=== PATIENT | female | born 1985 | race Caucasian/White ===

== ENCOUNTER 2024-08-16 08:41 | Outpatient (CLI) | payer MEDICARE, MEDICAID, SELFPAY ==
[2024-08-16 12:33] LABS: TSH (W/Ref FT4) 0.94 uIU/mL (0.36-3.74)
== END 2024-08-16 08:42 | disposition home or self-care (01) ==
LOC: LOS 08:41
PROVIDERS: PCP Family Medicine; Visit Provider Family Medicine
DX: E03.9 Hypothyroidism, unspecified (principal); F41.9 Anxiety disorder, unspecified; E06.3 Autoimmune thyroiditis; F17.290 Nicotine dependence, other tobacco product, uncomplicated; E22.1 Hyperprolactinemia; D35.2 Benign neoplasm of pituitary gland; I10 Essential (primary) hypertension
CPT/HCPCS: 36415; 84443

== ENCOUNTER 2024-11-15 00:09 | Outpatient (CLI) | payer MEDICARE, MEDICAID, SELFPAY ==
--- NOTE | 2024-11-15 07:00 | DI.MAMMO_ITS ---
Exam(s) MAMMO DIAGNOSTIC BI EXAM: MAMMO DIAGNOSTIC BI CLINICAL HISTORY: right breast nipple changes,r23.4 TECHNIQUE: Mammograms were interpreted according to the usual protocol including computer analysis w [employer] CAD system, tomosynthesis and C-view imaging. COMPARISON: No exams were available for comparison. Baseline examination. FINDINGS: The breasts are composed of scattered fibroglandular densities, Breast Density category B. No suspicious masses or suspicious microcalcifications are seen. No skin thickening or abnormal axillary lymph nodes are seen. IMPRESSION: BI-RADS Category 1, Negative mammogram Yearly screening mammography is recommended. Breast Density - Category B, scattered fibroglandular densities. A negative radiographic report should not delay biopsy if a dominant or clinically suspicious mass is present. Up to ten percent of cancers are not identified on mammography. A negative report may reinforce clinical impression. Adenosis and dense breasts may obscure an underlying neoplasm. False positive reports average 6 to 10%. Patient will receive a letter notifying them of these results.
== END 2024-11-15 00:29 ==
LOC: DI 00:09
PROVIDERS: PCP Family Medicine; Visit Provider Family Medicine
DX: R23.4 Changes in skin texture (principal); Z12.31 Encounter for screening mammogram for malignant neoplasm of breast; R92.323 Mammographic fibroglandular density, bilateral breasts
CPT/HCPCS: 77062; 77066; G0279

== ENCOUNTER 2024-12-04 21:35 | Outpatient (REF) | payer MEDICARE, MEDICAID, SELFPAY ==
[2024-12-04 21:39] LABS: Anion Gap 9.4 mmol/L (3-11); BUN 16 mg/dL (7-18); CO2 28.6 mmol/L (21.0-32.0); CREATININE 0.7 mg/dL (0.55-1.02); Calcium 9.4 mg/dL (8.5-10.1); Chloride 103 mmol/L (98-107); Estimated GFR 112.05 (mL/min/1.73m2); Glucose 77 mg/dL (74-106); Potassium 3.7 mmol/L (3.5-5.1); Sodium 141 mmol/L (136-145)
== END 2024-12-04 21:36 | disposition home or self-care (01) ==
LOC: LBN 21:35
PROVIDERS: PCP Family Medicine; Visit Provider Family Medicine
DX: I10 Essential (primary) hypertension (principal); Z00.00 Encounter for general adult medical examination without abnormal findings; D35.2 Benign neoplasm of pituitary gland; E22.1 Hyperprolactinemia; F10.90 Alcohol use, unspecified, uncomplicated; F17.290 Nicotine dependence, other tobacco product, uncomplicated
CPT/HCPCS: 80048

== ENCOUNTER 2025-02-07 01:46 | Outpatient (CLI) | payer MEDICARE, MEDICAID, SELFPAY ==
[2025-02-07 17:09] LABS: FREE T4 1.27 ng/dL (0.76-1.46); TSH 0.64 uIU/mL (0.36-3.74)
== END 2025-02-07 01:47 | disposition home or self-care (01) ==
LOC: LBO 01:46
PROVIDERS: PCP Family Medicine; Visit Provider Internal Medicine Endocrinology, Diabetes & Metabolism
DX: E03.9 Hypothyroidism, unspecified (principal)
CPT/HCPCS: 84146; 84439; 84443

== ENCOUNTER 2025-03-21 18:13 | Outpatient (REF) | payer MEDICARE, MEDICAID, SELFPAY ==
--- NOTE | 2025-03-21 16:40 | PAPFT_PTH ---
PATIENT: Monet Brennan LOC: [facility] U#:[id number] AGE/SX: 40/F ROOM: RE03/21/[address]: Stephanie Larose : 1985 BED: DIS: 03/21/2025 SPEC #: [id number] RECD: 03/24/25 13:16 STATUS: GREGORIO REQ #: [id number] HAILEE: 03/21/25 16:[address]: Stephanie Larose DEPT: [facility] Cytology RECD BY: Sharon Mcnulty Tissues: 1 - CX/ENDOCX FOR PAP SMEARS Procedures: PAP THIN PREP/[facility] Screening HPV DNA PROBE Comments: [id number] (HPV 16 & 18/45)
== END 2025-03-21 18:14 | disposition home or self-care (01) ==
LOC: LBN 18:13
PROVIDERS: PCP Family Medicine; Visit Provider Family Medicine
DX: Z12.4 Encounter for screening for malignant neoplasm of cervix (principal)
CPT/HCPCS: 88142; 87624

== ENCOUNTER 2025-04-01 09:14 | Observation (INO) | payer MEDICARE, MEDICAID, SELFPAY ==
[2025-04-01] VITALS (56 sets, daily range): BP systolic 96–144; BP diastolic 63–92; PULSE 59–95; RESP 11–22; TEMP 36.5–36.7; O2SAT 96–100
--- NOTE | 2025-04-01 09:30 | RT.EKG_ITS ---
APPROVED REPORT Exam: Resting ECG Reason for Exam: dizziness Patient Location: E HR:77 bpm ECG Measurements Heart Rate 77 AXIS HI 161 P 77 QRSd 101 QRS 73 QT 399 T 56 QTc 452 Conclusion Sinus rhythm...normal P axis, V-rate 60- 99 Sinus Rhythm. No prior. WD
--- NOTE | 2025-04-01 09:30 | DI.RAD_ITS ---
Exam(s) XR CHEST 2V PA LATERAL EXAM: XR CHEST 2V PA LATERAL CLINICAL HISTORY: dizziness TECHNIQUE: 2D digital imaging was performed of the chest. Two images were obtained. PA and lateral views were obtained. COMPARISON: No exams were available for comparison FINDINGS: MEDIASTINUM: Normal. HEART: Normal. PULMONARY VASCULATURE: Normal. LUNGS: There is a small area of atelectasis seen in the right middle lobe. The lungs are otherwise clear. PLEURAL SPACE: No pleural effusion or pneumothorax. BONE:Within normal limits for the patient's age. OTHER FINDINGS:Normal. IMPRESSION: No acute pulmonary findings. DATA REPOSITORY: RADIATION DOSE DELIVERED:
[2025-04-01 10:04] LABS: Glucose Negative (Negative)
[2025-04-01 10:33] LABS: Abs Immature Grans 0.02 10^3/uL (0.0-0.06); HCT 39.5 % (36.0-46.0); HGB 13.4 g/dL (11.2-15.7); Immature Grans % 0.2 %; MCH 30.2 pg (27.0-33.0); MCHC 33.9 % (32.0-36.0); MCV 89 fL (80-95); MPV 10.2 fL (8.0-11.0); Platelet Count 294 10^3/uL (130-400); RBC 4.44 10^6/uL (3.93-5.22); RDW 12.0 % (11.7-14.6); RDW-SD 39.3 fL; WBC 8.33 10^3/uL (4.4-10.8)
[2025-04-01 10:37] LABS: ESR 9 mm/hr (0-20)
[2025-04-01] MEDS: Omnipaque 350 MG/ML 100 ML BTL IJ (10:47)
[2025-04-01] MEDS: Normal Saline - Diluent 50 ML VIAL IJ (10:49)
--- NOTE | 2025-04-01 10:55 | DI.CT_ITS ---
Exam(s) CT BRAIN NECK CTA EXAM: CT BRAIN NECK CTA CLINICAL HISTORY: vertigo x4days. TECHNIQUE: Imaging Protocol: Axial CT angiography was performed with multi- slice acquisition and multi-planar and/or 3D reconstructions. CONTRAST MATERIAL: Intravenous: Omnipaque 350 contrast volume:70 mL COMPARISON: No exams were available for comparison FINDINGS: CT Head W/O and W: Ventricles and Extra axial spaces: Normal in size and morphology for the patient's age. Hemorrhage: None. Cerebral parenchyma: There is no evidence of an acute territorial infarct or mass effect. Midline shift: None. Brainstem/Cerebellum: Normal. Calvarium: Normal. Visualized Paranasal sinuses/Mastoids: There is mild mucosal thickening in the paranasal sinuses. No air-fluid levels are seen. The mastoid air cells are clear. Soft Tissues: Unremarkable. Enhancement: Unremarkable. CTA Neck W: Common Carotid: Right: No dissection, occlusion or significant stenosis. Left: No dissection, occlusion or significant stenosis. External Carotid: Right: No occlusion or significant stenosis. Left: No occlusion or significant stenosis. Internal Carotid: Right: No dissection, occlusion or significant stenosis. Left: No dissection, occlusion or significant stenosis. Vertebral Artery: Right: No dissection, occlusion or significant stenosis. Left: No dissection, occlusion or significant stenosis. Lung Apices: Normal. Bones: Within normal limits for the patient's age. Soft Tissues: Normal. Thyroid gland: Unremarkable. CTA Brain W: Internal Carotid Arteries: There is no evidence of an aneurysm, occlusion or significant stenosis. Anterior Cerebral Arteries: Right: No aneurysm, occlusion or significant stenosis. Left: No aneurysm, occlusion or significant stenosis. Middle Cerebral Arteries: Right: No aneurysm, occlusion or significant stenosis. Left: No aneurysm, occlusion or significant stenosis. Posterior Cerebral Arteries: Right: No aneurysm, occlusion or significant stenosis. Left: No aneurysm, occlusion or significant stenosis. Vertebral Arteries: Right: No aneurysm, occlusion or significant stenosis. Left: No aneurysm, occlusion or significant stenosis. Basilar Artery: No aneurysm, occlusion or significant stenosis. Incidental note is made of a venous angioma in the left frontal lobe. IMPRESSION: 1. No large vessel occlusion or significant stenosis on the CT angiography of the head. 2. No acute intracranial process. 3. No occlusion or significant stenosis on the CT angiography of the neck. RADIATION DOSE DELIVERED: 2,176.33mGy.cm Total DLP DATA REPOSITORY: All CT scans at this facility are submitted to the National Radiology Data Registry (NRDR) Dose Index Registry (DIR) with the [employer] ([employer]). RADIATION OPTIMIZATION: All CT scans at this facility use at least one of these dose optimization techniques: automated exposure control; mA and/or kV adjustment per patient size (includes targeted exams where dose is matched to clinical indication); or iterative reconstruction.
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
[2025-04-01 11:46] LABS: ALT 16 U/L (14-59); AST 12 U/L (15-37); Albumin 3.5 g/dL (3.4-5.0); Alkaline Phosphatase 40 U/L (46-116); Anion Gap 4.6 mmol/L (3-11); BUN 11 mg/dL (7-18); Bilirubin, Total 0.4 mg/dL (0.2-1.0); CO2 27.4 mmol/L (21.0-32.0); Calcium 8.4 mg/dL (8.5-10.1); Chloride 105 mmol/L (98-107); Estimated GFR 120.77 (mL/min/1.73m2); Glucose 94 mg/dL (74-106); Magnesium 1.9 mg/dL (1.8-2.4); Potassium 3.8 mmol/L (3.5-5.1); Sodium 137 mmol/L (136-145); TSH (W/Ref FT4) 0.30 uIU/mL (0.36-3.74); Total Protein 6.6 g/dL (6.4-8.2); Troponin I 5 ng/L (<or=51)
[2025-04-01 11:47] LABS: C-Reactive Protein < 0.50 mg/dL (<or=0.5)
[2025-04-01] MEDS: Meclizine 25 MG TAB PO (11:58)
--- NOTE | 2025-04-01 15:06 | IN_ITS ---
PT Notes Visit Reasons: Dizziness Physical Therapy Inpatient Initial Evaluation Date: 04/01/2025 Referring Doctor: INGE Hughes PT Orders: PT CONSULT: ?BPPV. SAfety Consult for D/C Precautions: Activity as tolerated. Standard. Fall risk. Patient Profile/Admitting Diagnosis: Consult request was sent to assess for BPPV for this 40-year-old patient with history significant for heavy alcohol and nicotine dependence. She presented today with chief complaints of gait abnormality, vertigo, and feeling drunk. PMHX: All Active Problems (Updated 12/04/24 @ 16:10 by Stephanie Larose MD) Hypertension (Chronic ~2022) Elevated LFTs (Acute ~11/2023) negative elastography 01/2024; abd us with diffuse increased echogenicity Heavy alcohol use (Acute) Nicotine dependence (Chronic) vapes Anxiety (Chronic) manages with alcohol at bedtime; in therapy at [facility]. Medications have not been effective. 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 Indepednent with all aspects of ADLs prior to admission. Equipment Owned/DME: None Subjective: Patient stated that she has stopped drinking for two months now. She has had pressure in her head and her B ears which becomes worse when lying flat. She has not been this much dizzy. Onset: 03/29/2025 upon rising from her bed Quality: objects in room moving, jumpy Duration: On and off since two days ago, worst today Previous Episodes: Months ago but not to this extent Exacerbating Factors: sitting up from lying down Headache: Yes Neck ache: Yes Nausea/Vomitting: Nausea yes, vomiting no Hearing Loss: None Tinnitus: Yes Fullness in Ear: Yes Imbalance: Mildldy affected Red Flags: Visual changes: reported floaters on the L eye Dysphagia or Dysarthria: None Facial Weakness: None Incoordination: None Prior Level of Function: Independent with all ADLs. Current Level of Function: Mildly cautious with movement Previous Treatment: None OBJECTIVE: Posture: Good upright posturing Observation: guarded movements, with limited head motions during gait, transfers and bed mobility Mental Status: A and O x 4 Vital Signs: Closely monitored by nursing staff ROM: Cervical ROM: WFL Strength: Cervical muscle strength: 4/5 Bed Mobility/Transfers: Supine to sit stand by assist Sit to supine stand by assist Sit to stand stand by assist Stand to sit stand by assist Gait: 150 feet without an assistive device around ED hallway with cautious hesitant steps. Head and trunk rotation decreased. Gait speed decreased. Mild path deviation. Special Tests: [place]: Minimal side to side sway but no LOB Coordination: Intact Fine Motor: Intact Visual Tracking: Intact Head Impulse Test: Negative Test of Skew: Negative Nystagmus: None seen [address]: Left upbeating/torsional nystagmus of ?2 minuteswith R Rosemarie hallpike with increased spinning sensation reported but no vomitting Supine Roll Test: Negative Balance: Static Sitting: Good Dynamic Sitting: Good Static Standing: Fair Dynamic Standing: Fair Special Tests: Mobility Limitations Standardized Measure [facility] AM-PAC 6 clicks Basic Mobility Inpatient Short Form: Raw Score: 19 CMS Score: 42% deficit Informed Consent/Education: Patient instructed in purpose of PT consult and plan of care. Agreeable to proceed with established PT POC to achieve personal goals. NEURO RE-ED: -Gaze stabilization exercises with good response ASSESSMENT: R/L Rosemarie-Hallpike did not show any nystagmus when patient was tested for 2 minutes each side. Supine head roll test was also negative. Patient reported dizziness worst with sitting up from supine with both L and R [address] maneuver. Tinnitus present in B ears. Pressure in her head and both ears was worse with lying flat, patient indicated that this has been going on for the past 2-3 years now which is why she never lies down flat when sleeping. CT scan of the brain found an incidental venous angioma on the L prefrontal lobe which INGE Gray was aware about. Cervicalgia contributory to symptoms. Patient with headache and neck ache that she said have been going on for quite awhile now but not to this extent. Will plan on retesting patient in the next session if patient will be admitted for observation status. Patient presents with clinical signs and symptoms consistent with current/admitting diagnoses that have resulted to mobility limitations, gait instability, generalized weakness, and overall ADL decline as demonstrated by the following impairment level findings: 1. Impaired standing balance 2. Impaired activity tolerance 3. Headache 4. Neck ache 5. Subjective report of chroninc pressure in head 6. Subjective report of chroninc pressure in B ears Impairments are contributing to the following functional limitations: 1. Increased completion time for mobility ADL performance 2. Increased risk for falls 3. Impaired balance with gait instability Patient is assessed as a 61777 low complexity based on the following: History: 40-year-old male with past medical history as indicated above Examination: Demonstrable impairment above Presentation: Evolving Decision Makin low complexity Goals: 1 week 1. Patient will be independent with level surface ambulation without an assistive device for up to 1000 feet to return to prior mobility level. 2. Patient will regain normal static and dynamic standing balance to facilitate return to safe mobility performance without AD. 3. Patient will show mastery of gaze stabilization performance utilizing a written copy to be done at home. Plan of Care/Treatment Plan: 1-2x/wk for for 1 week for vestibular rehab and functional mobility training. DISCHARGE RECOMMENDATIONS: OP PT for vestibular rehab once cleared by teleneurology/hospitalist. TREATMENT CODE/TIME: 94559 x 20 minutes for 1 unit, 28436 x 27 minutes for 2 units (14:14-15:03). Thank you for the opportunity to participate in the care of this patient. Allyn Hook PT, DPT, CLT [facility] [place], [place]
--- NOTE | 2025-04-01 16:40 | W.EDPROG ---
Date of service: 04/01/25 Time of Service: 16:40 Medical Decision Making Care assumed from provider (INGE Mark) Please see their initial HPI, PE, and documentation. Discussed patient details and case and pending workup and disposition. Patient is hemodynamically stable, and alert and oriented. On my initial examination patient is awake alert and conversive, family is at bedside she is requesting to take her noon medications which include amlodipine Zyrtec and vitamin D which I okayed. I did let the staff research scientist know. Patient did have consult with teleneuro who recommended an MRI which we are unable to get today. 1641: Consulted with Dr. Suazo who is on for hospitalist regarding admission request for observation, further treatment and MRI in morning for intractable dizziness low TSH with history of Rajiv's thyroiditis and pending MRI in morning. 1707: Spoke with Dr. Mendez who is on-call for hospitalist, discussed patient case in details he agrees to accept patient for admission for observation MRI in the morning. Discussed plan of care with patient and family who verbalized understanding and are in agreement with the plan. This text was generated using [employer] system, please disregard any oddities of phrase or misspellings. Medical Records Medical records reviewed: Yes I reviewed the patient's medical records. Imaging Data Radiologic Study: Imaging: CT Scan Radiologist's impression: Exam(s) a CT:CT brain & neck CTA Exam(s) CT BRAIN NECK CTA EXAM: CT BRAIN NECK CTA CLINICAL HISTORY: vertigo x4days. TECHNIQUE: Imaging Protocol: Axial CT angiography was performed with multi-slice acquisition and multi-planar and/or 3D reconstructions. CONTRAST MATERIAL: Intravenous: Omnipaque 350 contrast volume:70 mL COMPARISON: No exams were available for comparison FINDINGS: CT Head W/O and W: Ventricles and Extra axial spaces: Normal in size and morphology for the patient's age. Hemorrhage: None. Cerebral parenchyma: There is no evidence of an acute territorial infarct or mass effect. Midline shift: None. Brainstem/Cerebellum: Normal. Calvarium: Normal. Visualized Paranasal sinuses/Mastoids: There is mild mucosal thickening in the paranasal sinuses. No air-fluid levels are seen. The mastoid air cells are clear. Soft Tissues: Unremarkable. Enhancement: Unremarkable. CTA Neck W: Common Carotid: Right: No dissection, occlusion or significant stenosis. Left: No dissection, occlusion or significant stenosis. External Carotid: Right: No occlusion or significant stenosis. Left: No occlusion or significant stenosis. Internal Carotid: Right: No dissection, occlusion or significant stenosis. Left: No dissection, occlusion or significant stenosis. Vertebral Artery: Right: No dissection, occlusion or significant stenosis. Left: No dissection, occlusion or significant stenosis. Lung Apices: Normal. Bones: Within normal limits for the patient's age. Soft Tissues: Normal. Thyroid gland: Unremarkable. CTA Brain W: Internal Carotid Arteries: There is no evidence of an aneurysm, occlusion or significant stenosis. Anterior Cerebral Arteries: Right: No aneurysm, occlusion or significant stenosis. Left: No aneurysm, occlusion or significant stenosis. Middle Cerebral Arteries: Right: No aneurysm, occlusion or significant stenosis. Left: No aneurysm, occlusion or significant stenosis. Posterior Cerebral Arteries: Right: No aneurysm, occlusion or significant stenosis. Left: No aneurysm, occlusion or significant stenosis. Vertebral Arteries: Right: No aneurysm, occlusion or significant stenosis. Left: No aneurysm, occlusion or significant stenosis. Basilar Artery: No aneurysm, occlusion or significant stenosis. Incidental note is made of a venous angioma in the left frontal lobe. IMPRESSION: 1. No large vessel occlusion or significant stenosis on the CT angiography of the head. 2. No acute intracranial process. 3. No occlusion or significant stenosis on the CT angiography of the neck. Lab Data Lab results reviewed: Yes I reviewed the patient's lab results. Labs: Laboratory Tests Range/Units 04/01/25 04/01/25 04/01/25 09:30 10:20 11:10 WBC (4.4-10.8) 10^3/uL 8.33 RBC (3.93-5.22) 10^6/uL 4.44 Hgb (11.2-15.7) g/dL 13.4 Hct (36.0-46.0) % 39.5 MCV (80-95) fL 89 MCH (27.0-33.0) pg 30.2 MCHC (32.0-36.0) % 33.9 RDW (11.7-14.6) % 12.0 Plt Count (130-400) 10^3/uL 294 MPV (8.0-11.0) fL 10.2 Immature Gran % % 0.2 Neutrophils % % 75.2 Lymphocytes % % 18.4 Monocytes % % 4.7 Eosinophils % % 0.7 Basophils % % 0.8 Nucleated RBC % (0.0-0.3) % 0.0 Absolute Neutrophils (1.2-6.7) 10^3/uL 6.26 Absolute Lymphocytes (1.2-3.4) 10^3/uL 1.53 Absolute Monocytes (0.1-0.8) 10^3/uL 0.39 Absolute Eosinophils (0.0-0.7) 10^3/uL 0.06 Absolute Basophils (0.0-0.2) 10^3/uL 0.07 ESR (0-20) mm/hr 9 Sodium Cancelled 137 Potassium Cancelled 3.8 Chloride Cancelled 105 Carbon Dioxide Cancelled 27.4 Anion Gap Cancelled 4.6 BUN Cancelled 11 Creatinine Cancelled 0.5 L Est GFR (CKD-EPI 2020) Cancelled 120.77 Glucose Cancelled 94 Calcium Cancelled 8.4 L Magnesium Cancelled 1.9 Total Bilirubin Cancelled 0.4 AST Cancelled 12 L ALT Cancelled 16 Alkaline Phosphatase Cancelled 40 L Troponin I Cancelled 5 C-Reactive Protein Cancelled < 0.50 Total Protein Cancelled 6.6 Albumin Cancelled 3.5 TSH Cancelled 0.30 L Free T4 (0.76-1.46) ng/dL 1.54 H Urine Color (Yellow) Yellow Urine Clarity (Clear) Clear Urine pH (5-8) 5.5 Ur Specific Crowley (1.005-1.025) 1.020 Urine Protein (Neg-Trace) mg/dL Negative Urine Ketones (Negative) mg/dL Trace H Urine Blood (Negative) Negative Urine Nitrite (Negative) Negative Urine Bilirubin (Negative) Negative Urine Urobilinogen (Up to 0.2) mg/dL 0.2 Ur Leukocyte Esterase (Negative) Negative Urine Glucose (Negative) mg/dL Negative Discharge Plan Disposition Patient Disposition: Admit to [facility] Condition: Stable Discharge Details Clinical Impression: Dizziness and giddiness Primary Care Provider: Stephanie Larose ED Provider: Angela Roman Home Meds and New Rx's Prescriptions: No Action cabergoline 0.5 mg tablet 0.5 mg PO Q7D Zyrtec 10 mg capsule 10 mg PO DAILY cholecalciferol (vitamin D3) 125 mcg (5,000 unit) capsule 2,000 unit PO DAILY fluticasone furoate-vilanterol [Breo Ellipta] 100-25 mcg/dose blister with device 1 inh inhalation DAILY Qty: 60 3RF azelastine 137 mcg (0.1 %) spray,non-aerosol 2 spray intranasal BID PRN (Reason: nasal congestion) Qty: 30 0RF Rx Instructions: administer into each nostril amlodipine 10 mg tablet 10 mg PO DAILY Qty: 90 3RF albuterol sulfate 90 mcg/actuation aerosol powdr breath activated 2 inh inhalation Q4H PRN (Reason: shortness of breath or wheezing) Qty: 1 5RF levothyroxine 137 mcg tablet 137 mcg PO DAILY Qty: 90 3RF triamcinolone acetonide 0.1 % lotion 1 applic topical BID Qty: 60 3RF albuterol sulfate 2.5 mg /3 mL (0.083 %) solution for nebulization 2.5 mg inhalation Q6H PRN (Reason: shortness of breath or wheezing) Qty: 90 11RF
--- NOTE | 2025-04-01 16:42 | NUR.NOTE ---
Patient was given person by oncoming Provider to take her home evening meds: amlodipine, zyrtec and vitamin D
[2025-04-01 16:48] LABS: Cannabinoids THC Positive (Negative); METHADONE URINE SCREEN Negative (Negative)
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
--- NOTE | 2025-04-01 20:17 | W.PC.ACHO ---
Registration Status: ADM STEPHEN Primary Language: Preferred Language: ED Information & Data Chief Complaint Dizzy/Sync 04/01/25 11:39 Triage Note Dizzy x3 days, feels 04/01/25 09:19 pressure in head and bilat ears, feels drunk. Was seen x1 mth ago for floaters in eye this continues, also states she feels she is talking slow Medical / Surgical History (Last Reviewed 04/01/25 @ 18:44 by [place] For[place]) Sinus tachycardia Left bundle branch block Hx of Rajiv thyroiditis (Last Reviewed 04/01/25 @ 18:44 by French Forde) H/O foot surgery (~2012) S/P left oophorectomy (2014) S/P tubal ligation (2014) Most Recent Vital Signs Temperature 36.6 C 04/01/25 18:57 Temperature Source Temporal Artery Scan 04/01/25 18:53 Pulse 77 04/01/25 18:57 Pulse 80 04/01/25 18:36 Respiratory Rate 12 04/01/25 18:57 Respiratory Effort Normal, Non-Labored 04/01/25 10:23 Respiratory Depth Normal 04/01/25 10:23 Respiratory Pattern Normal 04/01/25 10:23 Blood Pressure 114/87 04/01/25 18:57 Blood Pressure Mean 87 04/01/25 18:53 Blood Pressure Position Sitting 04/01/25 09:19 Pulse Oximetry 98 04/01/25 18:57 Oxygen Delivery Method Room Air 04/01/25 18:53 Oxygen Flow Rate 0 04/01/25 18:53 Pain Level 0 04/01/25 18:57 Allergies Latex, Natural Rubber Allergy (Intermediate, Verified 04/01/25 09:23) rash loratadine Adverse Reaction (Verified 04/01/25 09:23) Other (See Comment) Precautions Isolation Standard precaution 04/01/25 09:26 Active Medications Generic Name Dose Route Start Last Admin Trade Name Freq PRN Reason Stop Dose Admin Iohexol 100 ml 04/01/25 11:00 04/01/25 10:47 Omnipaque 350 Mg/Ml 100 Ml Btl IJ 05/01/25 23:59 70 ml DIRECTED MARCELLO Administration Sodium Chloride 50 ml 04/01/25 11:00 04/01/25 10:49 Normal Saline - Diluent 50 Ml Vial IJ 50 ml .FOR DI USE MARCELLO Administration IV IV Catheter Type [Right Saline Lock Antecubital] IV Catheter Gauge [Right 18 Antecubital] Diet Orders Category Date Time Status Regular/Normal [DIET] Nutrition 04/02/25 Breakfast Ordered Diagnostics 04/01/25 04/01/25 04/01/25 Range/Units 11:10 10:20 09:30 WBC 8.33 (4.4-10.8) 10^3/uL RBC 4.44 (3.93-5.22) 10^6/uL Hgb 13.4 (11.2-15.7) g/dL Hct 39.5 (36.0-46.0) % MCV 89 (80-95) fL MCH 30.2 (27.0-33.0) pg MCHC 33.9 (32.0-36.0) % RDW 12.0 (11.7-14.6) % Plt Count 294 (130-400) 10^3/uL MPV 10.2 (8.0-11.0) fL Immature Gran % 0.2 % Neutrophils % 75.2 % Lymphocytes % 18.4 % Monocytes % 4.7 % Eosinophils % 0.7 % Basophils % 0.8 % Nucleated RBC % 0.0 (0.0-0.3) % Absolute Neutrophils 6.26 (1.2-6.7) 10^3/uL Absolute Lymphocytes 1.53 (1.2-3.4) 10^3/uL Absolute Monocytes 0.39 (0.1-0.8) 10^3/uL Absolute Eosinophils 0.06 (0.0-0.7) 10^3/uL Absolute Basophils 0.07 (0.0-0.2) 10^3/uL ESR 9 (0-20) mm/hr Sodium 137 Cancelled Potassium 3.8 Cancelled Chloride 105 Cancelled Carbon Dioxide 27.4 Cancelled Anion Gap 4.6 Cancelled BUN 11 Cancelled Creatinine 0.5 L Cancelled Est GFR (CKD-EPI 2020) 120.77 Cancelled Glucose 94 Cancelled Calcium 8.4 L Cancelled Magnesium 1.9 Cancelled Total Bilirubin 0.4 Cancelled AST 12 L Cancelled ALT 16 Cancelled Alkaline Phosphatase 40 L Cancelled Troponin I 5 Cancelled C-Reactive Protein < 0.50 Cancelled Total Protein 6.6 Cancelled Albumin 3.5 Cancelled TSH 0.30 L Cancelled Free T4 1.54 H (0.76-1.46) ng/dL Urine Color Yellow (Yellow) Urine Clarity Clear (Clear) Urine pH 5.5 (5-8) Ur Specific [place] 1.020 (1.005-1.025) Urine Protein Negative (Neg-Trace) mg/dL Urine Ketones Trace H (Negative) mg/dL Urine Blood Negative (Negative) Urine Nitrite Negative (Negative) Urine Bilirubin Negative (Negative) Urine Urobilinogen 0.2 (Up to 0.2) mg/dL Ur Leukocyte Esterase Negative (Negative) Urine Glucose Negative (Negative) mg/dL Urine Opiates Screen Negative (Negative) Urine Methadone Screen Negative (Negative) Ur Barbiturates Screen Negative (Negative) Ur Tricyclics Screen Negative (Negative) Ur Amphetamines Screen Negative (Negative) U Benzodiazepines Scrn Negative (Negative) Urine Cocaine Screen Negative (Negative) Ur THC Screen Positive A (Negative) Ethyl Alcohol < 3.0 (<10) mg/dL [id number] Documentation POC Urine Test Start: 04/01/25 09:43 Freq: .Urine Test Status: Active Protocol: Activity Type Activity Date Activity User E-sign Co-sign Detail Recorded Client Recorded Date Recorded By Document 04/01/25 09:59 BANDAR [id number] 04/01/25 09:59 BANDAR Intake and Output - 24 Hour Total 04/01/25 09:14 thru 04/01/25 09:19 Weight 79.379 kg Falls Risk Assessment History of Falls No History 04/01/25 09:27 Contributing Factors Unstable 04/01/25 09:27 Ambulatory Aids Independent 04/01/25 09:27 Tubes/Lines None 04/01/25 09:27 Gait Evaluation No gait disturbance 04/01/25 09:27 Cognition No cognitive impairment 04/01/25 09:27 Fall Total Score 3 04/01/25 09:27 Level of Risk Standard/Low Risk 04/01/25 09:27 Problems (Last Reviewed 04/01/25 @ 18:44 by [place]) DVT prophylaxis (Acute) Dizziness and giddiness (Acute) Hypertension (Chronic ~2022) Nicotine dependence (Chronic) Asthma (Chronic) Hypothyroidism (Chronic) 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 Information / Comments: Paged at [phone], report called for at [phone] and spoke w/ Cassi who stated they would call back, @ [phone] Arabella called back and report was received. Increased dizziness, vertigo, and unsteady gait. Report received from: Arabella, ED Nurse
[2025-04-02 03:24] VITALS: BP 92/65; PULSE 67; RESP 18; TEMP 36.7; O2SAT 97
[2025-04-02 06:00] VITALS: PULSE 70
[2025-04-02 07:01] LABS: Hemoglobin A1C 5.1 % (<5.7)
[2025-04-02 07:12] LABS: Calculated LDL 68 mg/dL (<100); Cholesterol 123 mg/dL (<200); HDL Cholesterol 45 mg/dL (>or=50); Triglyceride 52 mg/dL (<150)
[2025-04-02 07:26] VITALS: BP 112/68; PULSE 67; RESP 14; TEMP 36; O2SAT 98
--- NOTE | 2025-04-02 09:10 | DI.MRI_ITS ---
Exam(s) MR BRAIN WO EXAM: MR BRAIN WO CLINICAL HISTORY: ?posterior circulation, speech, vertigo TECHNIQUE: Multiplanar multisequence MRI of the brain was performed. COMPARISON: CT CT BRAIN NECK CTA from 04/01/2025 FINDINGS: The examination is limited due to patient motion artifact. VENTRICLES AND EXTRA AXIAL SPACES: Normal in size and morphology for the patient's age. MIDLINE SHIFT: None. CEREBRAL PARENCHYMA: No focus of restricted diffusion to suggest acute infarct. No space-occupying lesion identified. HEMORRHAGE: None. BRAINSTEM/CEREBELLUM: Normal. CALVARIUM: Normal. VISUALIZED PARANASAL SINUSES/MASTOIDS:Clear. [place]: Normal flow void. [place]: Unremarkable. OTHER FINDINGS: None. IMPRESSION: No acute intracranial process. No evidence of an acute infarct. DATA REPOSITORY:
[2025-04-02] MEDS: Budesonide/Formoterol 80/4.5 10.2 GM 120 PUFF INH IH (10:16)
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
--- NOTE | 2025-04-02 11:16 | PT.INTREAT ---
PT Notes Visit Reasons: Vertigo, slurred speech Physical Therapy Inpatient Treatment Note Date: 04/02/2025 Precautions: Activity as tolerated. Standard. Fall risk. Subjective: Dizziness and pressure in head not as intense as it was yesterday with movement. OBJECTIVE: Posture: Good upright posturing Observation: Continues to guarded movements, with limited head motions during gait, transfers and bed mobility Mental Status: A and O x 4 Vital Signs: Closely monitored by nursing staff Gait: 250 feet without an assistive device around ED hallway with cautious hesitant steps. Head and trunk rotation decreased. Gait speed decreased. Mild path deviation. stand by assist only. Special Tests: Rosemarie-Halpike: Negative for nystagmus but verbalized increased pressure in head and B ears with sitting up from supine Supine Roll Test: Negative NEURO RE-ED: -Facilitated improved motor control, coordination, and proprioception during level surface ambulation along med surg hallway focusing on reciprocal leg advancement with arm swing, as well as trunk rotation. Increased challenge in balance while walking forward looking side to side 15 steps forward x 6 and then looking up and down while close to the wall outside the PT room, gradually increasing speed of head movements to tolerance. Patient demonstrated minimal instability that did not result to LOB as she was able to check herself safely. -VOR 1 exercises in sitting Balance: Static Sitting: Good Dynamic Sitting: Good Static Standing: Fair Dynamic Standing: Fair ASSESSMENT: R/L Rosemarie-Hallpike did not show any nystagmus when patient was REtested for 2 minutes each side. Supine head roll test was again negative. Patient reported dizziness worst with sitting up from supine with both L and R Rosemarie-Hallpike maneuver. Overall symptoms now with less intensity as patient demonstrated more efficient mobility performance. Plan of Care/Treatment Plan: 1-2x/wk for for 1 week for vestibular rehab and functional mobility training. DISCHARGE RECOMMENDATIONS: OP PT for vestibular rehab once cleared by teleneurology/hospitalist. TREATMENT CODE/TIME: 21215 x 44 minutes for 3 units (11:16-12:00).
--- NOTE | 2025-04-02 11:32 | CHAPLAIN ---
Monet was resting in bed when I visited this morning. Her nurse had just left the room. I introduced myself and explained my role. Monet said she's doing okay, and when I asked if I could get her anything, she said she was good with her water and tv. I will continue to visit.
--- NOTE | 2025-04-02 13:59 | PDOC.CMDIS ---
Date of service: 04/01/25 Time of Service: 14:00 LACE Index Scoring Tool Questions: Length of Stay (in days): 1 Was the patient admitted via the E.D.?: Yes E.D. Visits: 0 Answers: Total Score: 4 Risk of Readmission: Low Risk Care Management Discharge Plan Reason for Hospitalization: Vertigo Discharge Plan: Monet is being discharged home via private vehicle with family. Pt will follow up with community providers and her discharge plan of care as directed. No new services were ordered prior to discharge; a return to work letter was provided on discharge. Patient/Family Education Needs: Review discharge instructions and plan to follow up after discharge. Discuss ask me three. SDOH Health Related Social Needs: Health related social needs risk of homeless
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
== END 2025-04-02 15:31 | disposition home or self-care (01) ==
LOC: ER 17:07 → MS 18:40
PROVIDERS: Physician Assistant; Admitting Provider Family Medicine; Emergency Provider Registered Nurse Emergency; PCP Family Medicine; Responsible Provider Family Medicine; Visit Provider Family Medicine
DX: R42 Dizziness and giddiness (principal); R47.81 Slurred speech; J45.909 Unspecified asthma, uncomplicated; E22.1 Hyperprolactinemia; E06.3 Autoimmune thyroiditis; I10 Essential (primary) hypertension; R11.2 Nausea with vomiting, unspecified; Z79.899 Other long term (current) drug therapy; F32.A Depression, unspecified; F43.10 Post-traumatic stress disorder, unspecified; F10.91 Alcohol use, unspecified, in remission; F17.290 Nicotine dependence, other tobacco product, uncomplicated; F41.9 Anxiety disorder, unspecified; L50.8 Other urticaria; G43.009 Migraine without aura, not intractable, without status migrainosus; L40.9 Psoriasis, unspecified; D35.2 Benign neoplasm of pituitary gland
CPT/HCPCS: 00123; 36415; 70496; 70498; 80053; 80061; 80307; 81025; 85652; 93005; 94640; 97112; 97161; 97530; 99285; 70551; 71046; 80320; 81003; 83036; 83735; 84439; 84443; 84484; 85025; 86140; 93010; 94664; 99222; 99239; G0378; J3490

== ENCOUNTER 2025-05-12 17:35 | Emergency (ER) | payer MEDICARE, MEDICAID, SELFPAY ==
[2025-05-12 17:38] VITALS: BP 154/101; PULSE 92; RESP 18; TEMP 36.9; O2SAT 98
[2025-05-12 17:41] VITALS: BP 154/101; PULSE 92; RESP 18; TEMP 36.9; O2SAT 98
--- NOTE | 2025-05-12 18:30 | DI.CT_ITS ---
Exam(s) CT ABDOMEN PELVIS W EXAM: CT ABDOMEN PELVIS W CLINICAL HISTORY: RLQ abd Pain TECHNIQUE: Imaging Protocol: Axial computed tomography images with coronal and sagittal reformatted images were created and reviewed. CONTRAST MATERIAL: Intravenous: Omnipaque 350 Contrast volume:75 mL Oral: No COMPARISON: No exams were available for comparison FINDINGS: ABDOMEN: Lung Bases: No acute abnormality. Liver: Normal density. No measurable mass. Portal, Superior Mesenteric, and Splenic Veins: Unremarkable. Gallbladder and Biliary Tract: No radiodense calculus or dilation. Pancreas: Normal density, no abnormal calcifications or inflammatory process. Spleen: Normal. Adrenals: No masses seen. Kidneys: Normal size, contour and axis. No radiodense stones or obstructive uropathy. No masses seen. Abdominal Aorta: Abdominal portion non-dilated. Bowel: There are few scattered diverticula, but no evidence of acute diverticulitis. There is no evidence of bowel wall thickening or bowel obstruction. Appendix is unremarkable. Peritoneal Cavity: No ascites, collection or mesenteric inflammatory response. No free air. Lymph Nodes: Within normal limits. Bones: Within normal limits for the patient's age. Soft Tissues: Unremarkable. PELVIS: Bladder: Symmetric distention, no gross wall thickening. Reproductive Organs: Unremarkable as visualized. Lymph Nodes: Within normal limits. Bones: Within normal limits for the patient's age. IMPRESSION: 1. No acute abdominal or pelvic process. 2. There is a normal appendix. 3. Colonic diverticulosis without evidence of acute diverticulitis. 4. The preliminary [facility] report was reviewed. RADIATION DOSE DELIVERED: 546.77mGy.cm Total DLP DATA REPOSITORY: All CT scans at this facility are submitted to the National Radiology Data Registry (NRDR) Dose Index Registry (DIR) with the [employer] (A[employer]). RADIATION OPTIMIZATION: All CT scans at this facility use at least one of these dose optimization techniques: automated exposure control; mA and/or kV adjustment per patient size (includes targeted exams where dose is matched to clinical indication); or iterative reconstruction.
[2025-05-12 18:42] LABS: Abs Immature Grans 0.02 10^3/uL (0.0-0.06); HCT 39.1 % (36.0-46.0); HGB 12.9 g/dL (11.2-15.7); Immature Grans % 0.2 %; MCH 29.2 pg (27.0-33.0); MCHC 33.0 % (32.0-36.0); MCV 89 fL (80-95); MPV 10.1 fL (8.0-11.0); Platelet Count 323 10^3/uL (130-400); RBC 4.42 10^6/uL (3.93-5.22); RDW 12.5 % (11.7-14.6); RDW-SD 40.4 fL; WBC 8.65 10^3/uL (4.4-10.8)
[2025-05-12 18:59] LABS: ALT 19 U/L (14-59); AST 13 U/L (15-37); Albumin 4.2 g/dL (3.4-5.0); Alkaline Phosphatase 51 U/L (46-116); Anion Gap 7.1 mmol/L (3-11); BUN 13 mg/dL (7-18); Bilirubin, Total 0.4 mg/dL (0.2-1.0); CO2 28.9 mmol/L (21.0-32.0); Calcium 9.0 mg/dL (8.5-10.1); Chloride 104 mmol/L (98-107); Estimated GFR 115.57 (mL/min/1.73m2); Glucose 85 mg/dL (74-106); Magnesium 1.9 mg/dL (1.8-2.4); Potassium 3.4 mmol/L (3.5-5.1); Sodium 140 mmol/L (136-145); Total Protein 7.5 g/dL (6.4-8.2)
[2025-05-12 19:04] LABS: Lipase 31 U/L (<78)
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
[2025-05-12] MEDS: Normal Saline Flush 10 ML SYR IVP (19:26)
[2025-05-12] MEDS: Omnipaque 350 MG/ML 100 ML BTL IJ (19:26)
[2025-05-12] MEDS: Normal Saline - Diluent 50 ML VIAL IJ (19:26)
--- NOTE | 2025-05-12 20:36 | DI.VRAD_ITS ---
PROCEDURE INFORMATION: Exam: CT Abdomen And Pelvis With Contrast Exam date and time: 05/12/2025 7:25 PM Age: 40 years old Clinical indication: Abdominal pain; Localized; Prior surgery; Surgery date: 6+ months; Surgery type: 1 ovary removed; Lower abd pain TECHNIQUE: Imaging protocol: Computed tomography of the abdomen and pelvis with contrast. Radiation optimization: All CT scans at this facility use at least one of these dose optimization techniques: automated exposure control; mA and/or kV adjustment per patient size (includes targeted exams where dose is matched to clinical indication); or iterative reconstruction. Contrast material: OMNIPAQUE 350; Contrast volume: 75 ml; Contrast route: INTRAVENOUS (IV); COMPARISON: CR XR CHEST 2V PA LATERAL 04/01/2025 10:44 AM FINDINGS: Liver: Normal. No mass. Gallbladder and biliary ducts: Normal. No calcified stones. No ductal dilation. Pancreas: Normal. No ductal dilation. Spleen: Normal. No splenomegaly. Adrenal glands: Normal. No mass. Kidneys and ureters: Normal. No hydronephrosis. Stomach and bowel: Unremarkable. No obstruction. No mucosal thickening. Appendix: No evidence of appendicitis. Intraperitoneal space: Unremarkable. No free air. No significant fluid collection. Vasculature: Unremarkable. No abdominal aortic aneurysm. Lymph nodes: Unremarkable. No enlarged lymph nodes. Urinary bladder: Unremarkable as visualized. Reproductive: Unremarkable as visualized. Bones/joints: Unremarkable. No acute fracture. Soft tissues: Unremarkable. IMPRESSION: No acute findings. Dictated and Authenticated by: Bunny Lynn MD. Orderin Jessie Miller MD
[2025-05-12 21:23] VITALS: BP 125/97; PULSE 69; RESP 18; TEMP 36.7; O2SAT 100
== END 2025-05-12 21:25 | disposition home or self-care (01) ==
PROVIDERS: Emergency Provider Registered Nurse Emergency; PCP Family Medicine
DX: R10.31 Right lower quadrant pain (principal); I10 Essential (primary) hypertension; E03.9 Hypothyroidism, unspecified; F17.290 Nicotine dependence, other tobacco product, uncomplicated
CPT/HCPCS: 80053; 81025; 83690; 99285; 74177; 83735; 85025; 99284; J3490

== ENCOUNTER 2025-05-16 18:13 | Outpatient (REF) | payer MEDICARE, MEDICAID, SELFPAY | END 2025-05-16 18:14 | disposition home or self-care (01) | LOC: LBN 18:13 | PROVIDERS: PCP Family Medicine; Visit Provider Obstetrics & Gynecology | DX: D26.0 Other benign neoplasm of cervix uteri (principal) | CPT/HCPCS: 88305; 88361 ==